=== PATIENT | male | born 1985 | race Caucasian/White ===

== ENCOUNTER 2016-08-31 02:44 | Inpatient (IN) | payer SELFPAY ==
[2016-08-31] MEDS ORDERED: Sodium Chloride 0.9% 2.5 ML Syringe FLUSH PRN ×2 (03:46→05:40)
[2016-08-31] MEDS ORDERED: Sodium Chloride 0.9% 10 ML Syringe FLUSH PRN ×2 (03:46→05:40)
--- NOTE | 2016-08-31 03:51 | EDM.PDOC ---
ED HPI GENERAL MEDICAL PROBLEM - General Chief Complaint: Skin Complaint Stated Complaint: INSECT BITE ON RIGHT ARM- SWOLLEN Time Seen by Provider: 08/31/16 03:44 - History of Present Illness INITIAL COMMENTS - FREE TEXT/NARRATIVE: HISTORY AND PHYSICAL: History of present illness: Patient 31-year-old white male presents with a concern of pain swelling and redness to his right forearm patient does have history of MRSA and was hospitalized for this prior this is been over the last 2-3 days with expanding erythema pain and swelling he denies fever chills nausea vomiting or other complaints Review of systems: As per history of present illness and below otherwise all systems reviewed and negative. Past medical history: As per history of present illness and as reviewed below otherwise noncontributory. Surgical history: As per history of present illness and as reviewed below otherwise noncontributory. Social history: No reported history of drug or alcohol abuse. Family history: As per history of present illness and as reviewed below otherwise noncontributory. Physical exam: HEENT: Atraumatic, normocephalic, pupils reactive, negative for conjunctival pallor or scleral icterus, mucous membranes moist, throat clear, neck supple, nontender, trachea midline. Lungs: Clear to auscultation, breath sounds equal bilaterally, chest nontender. Heart: S1S2, regular, negative for clicks, rubs, or JVD. Abdomen: Soft, nondistended, nontender. Negative for masses or hepatosplenomegaly. Negative for costovertebral tenderness. Pelvis: Stable nontender. Genitourinary: Deferred. Rectal: Deferred. Extremities: Patient has approximately 6 cm circumferential area to his right forearm with significant swelling and erythema there is a excoriated area centrally noted. CMS neurovascular exams unremarkable Neuro: Awake, alert, oriented. Cranial nerves II through XII unremarkable. Cerebellum unremarkable. Motor and sensory unremarkable throughout. Exam nonfocal. Diagnostics: CBC CMP lactic acid blood culture 2 CT right forearm Therapeutics: Normal saline at 1 25 mL hour vancomycin 1 g IV Impression: #1 cellulitis right upper extremity Definitive disposition and diagnosis as appropriate pending reevaluation and review of above. 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 Musculoskeletal History: Reports: None Neurological History: Reports: None Psychiatric History: Reports: None Endocrine/Metabolic History: Reports: None Hematologic History: Reports: None Immunologic History: Reports: None Oncologic (Cancer) History: Reports: None Dermatologic History: Reports: None - Infectious Disease History Infectious Disease History: Reports: None - Past Surgical History Head Surgeries/Procedures: Reports: None Musculoskeletal Surgical History: Reports: Other (See Below) Other Musculoskeletal Surgeries/Procedures:: ankle surgery Social & Family History - Family History Family Medical History: Noncontributory - Tobacco Use Smoking Status *Q: Never Smoker - Caffeine Use Caffeine Use: Reports: Soda - Recreational Drug Use Recreational Drug Use: No ED ROS GENERAL - Review of Systems Review Of Systems: ROS reveals no pertinent complaints other than HPI. ED EXAM, SKIN/RASH Exam: See Below (See dictation) Course - Vital Signs Last Recorded V/S: Last Vital Signs Temp 37.0 C 08/31/16 02:56 Pulse 119 H 08/31/16 02:56 Resp 18 08/31/16 02:56 BP 157/102 H 08/31/16 02:56 Pulse Ox 97 08/31/16 02:56 - Orders/Labs/Meds Orders: Active Orders 24 hr Category Date Time Status Forearm w Cont Rt [CT] Stat Exams 08/31/16 03:49 Ordered COMPREHENSIVE METABOLIC PN,CMP [CHEM] Stat Lab 08/31/16 03:56 Received CULTURE BLOOD [BC] Stat Lab 08/31/16 03:56 Received CULTURE BLOOD [BC] Stat Lab 08/31/16 04:04 Received Sodium Chloride 0.9% [Saline Flush] Med 08/31/16 03:46 Active 10 ml FLUSH ASDIRECTED PRN Sodium Chloride 0.9% [Saline Flush] Med 08/31/16 03:46 Active 2.5 ml FLUSH ASDIRECTED PRN Vancomycin [Vancocin] 1 gm Med 08/31/16 03:47 Active Sodium Chloride 0.9% [Normal Saline] 250 ml IV ONETIME Blood Culture x2 Reflex Set [OM.PC] Stat Oth 08/31/16 03:46 Ordered Saline Lock Insert [OM.PC] Stat Ot 08/31/16 03:45 Ordered Medication Orders Vancomycin HCl 1 gm/ Sodium (Chloride) 250 mls @ 250 mls/hr IV ONETIME ONE Stop: 08/31/16 04:46 Last Admin: 08/31/16 04:02 Dose: 250 mls/hr Sodium Chloride (Saline Flush) 10 ml FLUSH ASDIRECTED PRN PRN Reason: Keep Vein Open Sodium Chloride (Saline Flush) 2.5 ml FLUSH ASDIRECTED PRN PRN Reason: Keep Vein Open Labs: Laboratory Tests 08/31/16 08/31/16 Range/Units 03:56 03:56 WBC 8.50 (4.0-11.0) K/uL RBC 5.08 (4.30-5.90) M/uL Hgb 14.6 (12.0-16.0) g/dL Hct 43.0 (36.0-46.0) % MCV 84.6 (80.0-98.0) fL MCH 28.7 (27.0-32.0) pg MCHC 34.0 (31.0-37.0) g/dL RDW Std Deviation 40.0 (28.0-62.0) fl RDW Coeff of Wilmer 13 (11.0-15.0) % Plt Count 205 (150-400) K/uL MPV 9.40 (7.40-12.00) fL Neut % (Auto) 60.1 (48.0-80.0) % Lymph % (Auto) 30.6 (16.0-40.0) % [place] % (Auto) 6.4 (0.0-15.0) % Eos % (Auto) 2.4 (0.0-7.0) % Baso % (Auto) 0.5 (0.0-1.5) % Neut # (Auto) 5.1 (1.4-5.7) K/uL Lymph # (Auto) 2.6 H (0.6-2.4) K/uL [place] # (Auto) 0.5 (0.0-0.8) K/uL Eos # (Auto) 0.2 (0.0-0.7) K/uL Baso # (Auto) 0.0 (0.0-0.1) K/uL Nucleated RBC % 0.0 /100WBC Nucleated RBCs # 0 K/uL Lactate 2.5 H (0.20-2.00) mmol/L Meds: Medications Generic Name Dose Route Start Last Admin Trade Name Freq PRN Reason Stop Dose Admin Vancomycin HCl 1 gm/ Sodium 250 mls @ 250 mls/hr 08/31/16 03:47 08/31/16 04: 02 Chloride IV 08/31/16 04:46 250 mls/hr ONETIME ONE Administration Sodium Chloride 10 ml 08/31/16 03:46 Saline Flush FLUSH ASDIRECTED PRN Keep Vein Open Sodium Chloride 2.5 ml 08/31/16 03:46 Saline Flush FLUSH ASDIRECTED PRN Keep Vein Open Departure - Departure Time of Disposition: 04:24 Disposition: Admitted As Inpatient 64 Condition: Good Clinical Impression: Cellulitis - Discharge Information Forms: ED Department Discharge - My Orders Last 24 Hours: My Active Orders 08/31/16 03:45 Saline Lock Insert [OM.PC] Stat 08/31/16 03:46 Sodium Chloride 0.9% [Saline Flush] 10 ml FLUSH ASDIRECTED PRN Sodium Chloride 0.9% [Saline Flush] 2.5 ml FLUSH ASDIRECTED PRN Blood Culture x2 Reflex Set [OM.PC] Stat 08/31/16 03:47 Vancomycin [Vancocin] 1 gm Sodium Chloride 0.9% [Normal Saline] 250 ml IV ONETIME 08/31/16 03:49 Forearm w Cont Rt [CT] Stat 08/31/16 03:56 COMPREHENSIVE METABOLIC PN,CMP [CHEM] Stat CULTURE BLOOD [BC] Stat 08/31/16 04:04 CULTURE BLOOD [BC] Stat - Assessment/Plan Last 24 Hours: My Active Orders 08/31/16 03:45 Saline Lock Insert [OM.PC] Stat 08/31/16 03:46 Sodium Chloride 0.9% [Saline Flush] 10 ml FLUSH ASDIRECTED PRN Sodium Chloride 0.9% [Saline Flush] 2.5 ml FLUSH ASDIRECTED PRN Blood Culture x2 Reflex Set [OM.PC] Stat 08/31/16 03:47 Vancomycin [Vancocin] 1 gm Sodium Chloride 0.9% [Normal Saline] 250 ml IV ONETIME 08/31/16 03:49 Forearm w Cont Rt [CT] Stat 08/31/16 03:56 COMPREHENSIVE METABOLIC PN,CMP [CHEM] Stat CULTURE BLOOD [BC] Stat 08/31/16 04:04 CULTURE BLOOD [BC] Stat
[2016-08-31 04:42] LABS: CHLORIDE,CL 106 mmol/L (98-110); SODIUM,NA 139 mmol/L (136-146)
[2016-08-31] MEDS ORDERED: Iopamidol 755 Mg/ML 100 ML Bottle IVPUSH STA (05:21)
[2016-08-31] MEDS: HYDROmorphone 2 MG/ML Syringe IVPUSH PRN ×2 (06:38→20:52)
[2016-08-31] MEDS: Lisinopril 10 MG Tab PO SCH (08:38)
--- NOTE | 2016-08-31 09:02 | PCM.HP ---
H&P History of Present Illness - General Date of Service: 08/31/16 Admit Problem/Dx: Admission Diagnosis/Problem Admission Diagnosis/Problem Cellulitis - History of Present Illness Initial Comments - Free Text/Narative: 31 yo male admitted right forearm cellulitis and abscess. 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 He was c/o pain and throbbing. He does not smoke, drink etoh or usee illciit drugs. He is otherwise healthy without any medical problems. He has a strong family history of DM. 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 Musculoskeletal History: Reports: Gout Neurological History: Reports: None Psychiatric History: Reports: None Endocrine/Metabolic History: Reports: None Hematologic History: Reports: None Immunologic History: Reports: None Oncologic (Cancer) History: Reports: None Dermatologic History: Reports: None - Infectious Disease History Infectious Disease History: Reports: Other (See Below) Other Infectious Disease History: Staphyloccus - Past Surgical History Head Surgeries/Procedures: Reports: None Musculoskeletal Surgical History: Reports: Other (See Below) Other Musculoskeletal Surgeries/Procedures:: ankle surgery Social & Family History - Family History Family Medical History: Noncontributory HEENT: Reports: None Cardiac: Reports: Blood Clots/VTE/DVT, High Cholesterol, Hypertension, MA, Stent Respiratory: Reports: None GI: Reports: None : Reports: None OBGYN: Reports: Musculoskeletal: Reports: None Neurological: Reports: TIA Psychiatric: Reports: None Endocrine/Metabolic: Reports: Diabetes, Type I Hematologic: Reports: None Immunologic: Reports: None Dermatologic: Reports: None Oncologic: Reports: None - Tobacco Use Smoking Status *Q: Never Smoker - Caffeine Use Caffeine Use: Reports: Soda - Recreational Drug Use Recreational Drug Use: No H&P Review of Systems - Review of Systems: Review Of Systems: See Below General: Reports: No Symptoms HEENT: Reports: No Symptoms Pulmonary: Reports: No Symptoms Cardiovascular: Reports: No Symptoms Gastrointestinal: Reports: No Symptoms Musculoskeletal: Reports: No Symptoms Skin: Reports: Other Psychiatric: Reports: No Symptoms Neurological: Reports: No Symptoms Exam - Exam Exam: See Below - Vital Signs Vital Signs: Last Vital Signs Temp 96.5 F 08/31/16 08:00 Pulse 71 08/31/16 08:00 Resp 20 08/31/16 08:00 BP 128/78 08/31/16 08:38 Pulse Ox 95 08/31/16 08:00 Weight: 147.5 kg - Exam General: Alert, Oriented Neck: Supple, Trachea Midline Lungs: Clear to Auscultation, Normal Respiratory Effort Cardiovascular: Regular Rate, Regular Rhythm Abdomen: Normal Bowel Sounds, Soft Back Exam: Normal Inspection, Full Range of Motion Skin: Wound, Other (right forearm cellulitis: abscess and erythema) Neurological: Cranial Nerves Intact - Patient Data Result Diagrams: 08/31/16 03:56 08/31/16 03:56 *Q Meaningful Use (ADM) - VTE *Q VTE Criteria *Q: - Stroke *Q Stroke Criteria *Q: - AMI *Q AMI Criteria *Q: Problem List Initiated/Reviewed/Updated: Yes Orders Last 24hrs: Active Orders 24 hr Category Date Time Status Regular Diet [DIET] Diet 08/31/16 Breakfast Active GLYCOSYLATED HEMOGLOBIN,HGBA1C [CHEM] Routine Lab 08/31/16 03:56 Received LACTIC ACID,WHOLE BLOOD [BG] Q6H Lab 08/31/16 09:56 Ordered LACTIC ACID,WHOLE BLOOD [BG] Q6H Lab 08/31/16 15:56 Ordered VANCOMYCIN TROUGH [CHEM] Timed Lab 09/01/16 11:30 Ordered HYDROmorphone [Dilaudid] Med 08/31/16 05:41 Active 2 mg IVPUSH Q2H PRN Lisinopril [Prinivil] Med 08/31/16 09:00 Active 10 mg PO DAILY Sodium Chloride 0.9% [Saline Flush] Med 08/31/16 05:40 Active 10 ml FLUSH ASDIRECTED PRN Sodium Chloride 0.9% [Saline Flush] Med 08/31/16 05:40 Active 2.5 ml FLUSH ASDIRECTED PRN Vancomycin 1.5 gm Med 08/31/16 12:00 Active Sodium Chloride 0.9% [Normal Saline] 500 ml IV Q8H Vancomycin Pharmacy to Dose [Pharmacy to Dose - Med 08/31/16 05:45 Active Vancomycin] 1 dose .XX ASDIRECTED Saline Lock Insert [OM.PC] Routine Oth 08/31/16 05:40 Ordered Medication Orders Hydromorphone HCl (Dilaudid) 2 mg IVPUSH Q2H PRN PRN Reason: Pain Last Admin: 08/31/16 06:38 Dose: 2 mg Vancomycin HCl 1.5 gm/ Sodium (Chloride) 500 mls @ 333.333 mls/hr IV Q8H [facility] Lisinopril (Prinivil) 10 mg PO DAILY [facility] Last Admin: 08/31/16 08:38 Dose: 10 mg Sodium Chloride (Saline Flush) 10 ml FLUSH ASDIRECTED PRN PRN Reason: Keep Vein Open Sodium Chloride (Saline Flush) 2.5 ml FLUSH ASDIRECTED PRN PRN Reason: Keep Vein Open Sodium Chloride (Saline Flush) 10 ml FLUSH ASDIRECTED PRN PRN Reason: Keep Vein Open Sodium Chloride (Saline Flush) 2.5 ml FLUSH ASDIRECTED PRN PRN Reason: Keep Vein Open Vancomycin HCl (Pharmacy To Dose - Vancomycin) 1 dose .XX ASDIRECTED [facility] Assessment/Plan Comment:: 31 yo male admitted for right forearm cellulitis and abscess add zosyn to vanco consider ID Hba1c is normal
--- NOTE | 2016-08-31 10:59 | CT ---
EXAM DATE: 08/31/16 PATIENT'S AGE: 31 Patient: LOGAN ARMSTRONG Facility: [place], [place] Site . Site : 1985 Study: CT Extremity Right FOREARM W CONT [id number]/[id number] 5:27:14 AM Ordering Physician: Mercedes Maldonado Final Report: INDICATION: Right forearm swelling with skin redness. Pressure and pain on top of the right arm for 2 days. Rule out cellulitis, abscess. TECHNIQUE: CT without i.v. contrast. Coronal and sagittal reformats were obtained. IV Contrast: Isovue 370 100 mL COMPARISON: None FINDINGS: Images extend from the distal humerus, just proximal to right elbow, to the proximal right hand. Rounded hypodensity medial to base of 1st metacarpal on series 2 of 5 image 16, visualized on axial series 201, image 23, measuring 1.2 centimeters. Findings are indeterminate. No peripheral enhancement or adjacent inflammatory changes. Mild subcutaneous edema at the dorsal margin of right wrist and distal forearm. No subcutaneous fluid collection. No inflammatory changes evident in the fascia planes of the right forearm, extending to the right elbow. IMPRESSION: 1. Likely mild cellulitis of the right wrist and distal forearm. No inflammatory changes in the deep fascia planes or muscles of the right forearm. Indeterminate intramuscular hypodensity at the medial margin of 1st metacarpal base without significant adjacent inflammatory changes, identified on series 201 , image 23 measuring 1.2 centimeters. Consider correlation with MRI with IV contrast. CT imaging features are not typical for abscess with lack of adjacent inflammatory changes and peripheral enhancement. Dictated by Kyree Mcgill MD @ 08/31/2016 5:39:22 AM Dictated by: Kyree Mcgill MD @ 08/31/2016 05:39:27 (Electronic Signature) Report Signed by Proxy. SENIA
[2016-08-31] MEDS: Piperacillin/Tazobactam 3.375 GM in Sodium Chloride 0.9% 50 ML IV SCH ×3 (11:06→22:33)
[2016-08-31] MEDS: Vancomycin 1.5 GM in Sodium Chloride 0.9% 500 ML IV SCH ×2 (11:49→21:00)
[2016-09-01] MEDS: Piperacillin/Tazobactam 3.375 GM in Sodium Chloride 0.9% 50 ML IV SCH ×4 (04:48→22:50)
[2016-09-01] MEDS: Vancomycin 1.5 GM in Sodium Chloride 0.9% 500 ML IV SCH ×3 (05:22→20:32)
[2016-09-01 06:32] LABS: CHLORIDE,CL 108 mmol/L (98-110); SODIUM,NA 140 mmol/L (136-146)
[2016-09-01] MEDS: Lisinopril 10 MG Tab PO SCH ×2 (08:27→08:34)
[2016-09-01] MEDS ORDERED: Lidocaine 2% 5 ML SDV INJECT ONE (09:00)
--- NOTE | 2016-09-01 10:11 | PCM.PN ---
- General Info Date of Service: 09/01/16 Functional Status: Reports: pain controlled, tolerating diet, ambulating, urinating - Review of Systems General: Reports: No Symptoms HEENT: Reports: no symptoms Pulmonary: Reports: no symptoms Cardiovascular: Reports: No Symptoms Gastrointestinal: Reports: No symptoms Genitourinary: Reports: no symptoms Musculoskeletal: Reports: no symptoms Skin: Reports: other (right forearm abscess) Neurological: Reports: No Symptoms Psychiatric: Reports: no symptoms - Patient Data Vitals - most recent: Last Vital Signs Temp 98.7 F 09/01/16 08:00 Pulse 52 L 09/01/16 08:00 Resp 18 09/01/16 08:00 BP 125/65 09/01/16 08:34 Pulse Ox 94 L 09/01/16 08:00 Weight - most recent: 147.5 kg I&O - last 24 hours: Intake & Output 08/31/16 09/01/16 09/01/16 22:59 06:59 14:59 Intake Total 1850 550 500 Output Total 600 650 Balance 1250 -100 500 Lab Results last 24 hrs: Laboratory Results - last 24 hr 08/31/16 09/01/16 09/01/16 Range/Units 10:45 05:44 05:44 WBC 7.07 (4.0-11.0) K/uL RBC 4.76 (4.50-5.90) M/uL Hgb 13.5 (13.0-17.0) g/dL Hct 40.9 (38.0-50.0) % MCV 85.9 (80.0-98.0) fL MCH 28.4 (27.0-32.0) pg MCHC 33.0 (31.0-37.0) g/dL RDW Std Deviation 41.8 (28.0-62.0) fl RDW Coeff of Wilmer 13 (11.0-15.0) % Plt Count 181 (150-400) K/uL MPV 9.50 (7.40-12.00) fL Neut % (Auto) 52.3 (48.0-80.0) % Lymph % (Auto) 34.8 (16.0-40.0) % [place] % (Auto) 8.5 (0.0-15.0) % Eos % (Auto) 4.0 (0.0-7.0) % Baso % (Auto) 0.4 (0.0-1.5) % Neut # (Auto) 3.7 (1.4-5.7) K/uL Lymph # (Auto) 2.5 H (0.6-2.4) K/uL [place] # (Auto) 0.6 (0.0-0.8) K/uL Eos # (Auto) 0.3 (0.0-0.7) K/uL Baso # (Auto) 0.0 (0.0-0.1) K/uL Nucleated RBC % 0.0 /100WBC Nucleated RBCs # 0 K/uL Lactate 1.6 (0.20-2.00) mmol/L Sodium 140 (136-146) mmol/L Potassium 4.1 (3.5-5.1) mmol/L Chloride 108 (98-110) mmol/L Carbon Dioxide 25 (21-31) mmol/L BUN 11 (6.0-23.0) mg/dL Creatinine 1.0 (0.6-1.5) mg/dL Est Cr Clr Drug Dosing 118.74 mL/min Estimated GFR (MDRD) > 60.0 ml/min Glucose 95 (60-110) mg/dL Calcium 8.5 L (8.8-10.8) mg/dL Med Orders - Current: Current Medications Hydromorphone HCl (Dilaudid) 2 mg IVPUSH Q2H PRN PRN Reason: Pain Last Admin: 08/31/16 20:52 Dose: 2 mg Vancomycin HCl 1.5 gm/ Sodium (Chloride) 500 mls @ 333.333 mls/hr IV Q8H [facility] Last Admin: 09/01/16 05:22 Dose: 333.333 mls/hr Piperacillin Sod/Tazobactam (Sod 3.375 gm/ Sodium Chloride) 50 mls @ 100 mls/ hr IV Q6H [facility] Last Admin: 09/01/16 04:48 Dose: 100 mls/hr Lisinopril (Prinivil) 10 mg PO DAILY [facility] Last Admin: 09/01/16 08:34 Dose: 10 mg Sodium Chloride (Saline Flush) 10 ml FLUSH ASDIRECTED PRN PRN Reason: Keep Vein Open Sodium Chloride (Saline Flush) 2.5 ml FLUSH ASDIRECTED PRN PRN Reason: Keep Vein Open Sodium Chloride (Saline Flush) 10 ml FLUSH ASDIRECTED PRN PRN Reason: Keep Vein Open Sodium Chloride (Saline Flush) 2.5 ml FLUSH ASDIRECTED PRN PRN Reason: Keep Vein Open Vancomycin HCl (Pharmacy To Dose - Vancomycin) 1 dose .XX ASDIRECTED [facility] Discontinued Medications Vancomycin HCl 1 gm/ Sodium (Chloride) 250 mls @ 250 mls/hr IV ONETIME ONE Stop: 08/31/16 04:46 Last Admin: 08/31/16 04:02 Dose: 250 mls/hr Vancomycin HCl 500 mg/ Sodium (Chloride) 100 mls @ 100 mls/hr IV NOW ONE Stop: 08/31/16 06:59 Last Admin: 08/31/16 06:30 Dose: 100 mls/hr Iopamidol (Isovue-370 (76%)) 100 ml IVPUSH ONETIME STA Stop: 08/31/16 05:22 Last Admin: 08/31/16 05:22 Dose: 100 ml Lidocaine (Xylocaine-Mpf 2%) 5 ml INJECT ONETIME ONE Stop: 09/01/16 09:01 Last Admin: 09/01/16 09:45 Dose: 5 ml - Exam General: alert, oriented HEENT: Pupils equal, EOMI Neck: supple, trachea midline Lungs: Decreased breath sounds Cardiovascular: Regular Rate, Regular Rhythm Abdomen: bowel sounds present, soft, no tenderness Back Exam: Normal Inspection, Full Range of Motion Extremities: no edema Skin: other (right forearm: there is hard abscess slightly fluctuant raised 4X 5 cm) Neurological: no new focal deficit Psy/Mental Status: alert, normal affect, normal mood - Problem List Review Problem List Initiated/Reviewed/Updated: Yes - My Orders Last 24 Hours: My Active Orders 08/31/16 10:07 Code Status [Resuscitation Status] Routine 08/31/16 10:30 Piperacillin/Tazobactam [Piperacil-Tazobact] 3.375 gm Sodium Chloride 0.9% [ Normal Saline] 50 ml IV Q6H - Plan Plan:: 31 yo male admitted for right forearm cellulitis and abscess Right forearm I/D preformed: there is serosanguinous fluid. No pus drained. Patient felt somewhat relief after ID. continue abx anticipate discharge tomorrow.
[2016-09-01] MEDS: HYDROmorphone 2 MG/ML Syringe IVPUSH PRN ×4 (11:24→23:39)
[2016-09-02] MEDS: Piperacillin/Tazobactam 3.375 GM in Sodium Chloride 0.9% 50 ML IV SCH ×4 (04:00→22:17)
[2016-09-02] MEDS: Vancomycin 1.5 GM in Sodium Chloride 0.9% 500 ML IV SCH ×3 (04:51→20:30)
[2016-09-02 06:16] LABS: CHLORIDE,CL 106 mmol/L (98-110); SODIUM,NA 138 mmol/L (136-146)
[2016-09-02] MEDS: HYDROmorphone 2 MG/ML Syringe IVPUSH PRN ×4 (07:02→22:58)
[2016-09-02] MEDS: Lisinopril 10 MG Tab PO SCH (09:23)
--- NOTE | 2016-09-02 12:08 | PCM.PN ---
- General Info Date of Service: 09/02/16 Subjective Update: he is feeling better a little. no chills . he ate well last pm. 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 - Patient Data Vitals - most recent: Last Vital Signs Temp 97.8 F 09/02/16 08:00 Pulse 75 09/02/16 08:00 Resp 18 09/02/16 08:00 BP 127/65 09/02/16 09:23 Pulse Ox 93 L 09/02/16 08:00 Weight - most recent: 147.5 kg I&O - last 24 hours: Intake & Output 09/01/16 09/02/16 09/02/16 22:59 06:59 14:59 Intake Total 2240 1550 Output Total 800 Balance 1440 1550 Lab Results last 24 hrs: Laboratory Results - last 24 hr 09/01/16 09/02/16 09/02/16 Range/Units 11:39 05:32 05:32 WBC 8.66 (4.0-11.0) K/uL RBC 4.78 (4.50-5.90) M/uL Hgb 13.6 (13.0-17.0) g/dL Hct 40.5 (38.0-50.0) % MCV 84.7 (80.0-98.0) fL MCH 28.5 (27.0-32.0) pg MCHC 33.6 (31.0-37.0) g/dL RDW Std Deviation 40.5 (28.0-62.0) fl RDW Coeff of Wilmer 13 (11.0-15.0) % Plt Count 198 (150-400) K/uL MPV 9.40 (7.40-12.00) fL Neut % (Auto) 61.3 (48.0-80.0) % Lymph % (Auto) 26.7 (16.0-40.0) % [place] % (Auto) 8.5 (0.0-15.0) % Eos % (Auto) 2.8 (0.0-7.0) % Baso % (Auto) 0.7 (0.0-1.5) % Neut # (Auto) 5.3 (1.4-5.7) K/uL Lymph # (Auto) 2.3 (0.6-2.4) K/uL [place] # (Auto) 0.7 (0.0-0.8) K/uL Eos # (Auto) 0.2 (0.0-0.7) K/uL Baso # (Auto) 0.1 (0.0-0.1) K/uL Nucleated RBC % 0.0 /100WBC Nucleated RBCs # 0 K/uL Sodium 138 (136-146) mmol/L Potassium 4.3 (3.5-5.1) mmol/L Chloride 106 (98-110) mmol/L Carbon Dioxide 25 (21-31) mmol/L BUN 11 (6.0-23.0) mg/dL Creatinine 1.1 (0.6-1.5) mg/dL Est Cr Clr Drug Dosing 107.95 mL/min Estimated GFR (MDRD) > 60.0 ml/min Glucose 89 (60-110) mg/dL Calcium 8.9 (8.8-10.8) mg/dL Vancomycin Trough 17.4 H (5-15) ug/mL Med Orders - Current: Current Medications Hydromorphone HCl (Dilaudid) 2 mg IVPUSH Q2H PRN PRN Reason: Pain Last Admin: 09/02/16 07:02 Dose: 2 mg Vancomycin HCl 1.5 gm/ Sodium (Chloride) 500 mls @ 333.333 mls/hr IV Q8H [facility] Last Admin: 09/02/16 04:51 Dose: 333.333 mls/hr Piperacillin Sod/Tazobactam (Sod 3.375 gm/ Sodium Chloride) 50 mls @ 100 mls/ hr IV Q6H [facility] Last Admin: 09/02/16 09:53 Dose: 100 mls/hr Lisinopril (Prinivil) 10 mg PO DAILY [facility] Last Admin: 09/02/16 09:23 Dose: 10 mg Sodium Chloride (Saline Flush) 10 ml FLUSH ASDIRECTED PRN PRN Reason: Keep Vein Open Sodium Chloride (Saline Flush) 2.5 ml FLUSH ASDIRECTED PRN PRN Reason: Keep Vein Open Sodium Chloride (Saline Flush) 10 ml FLUSH ASDIRECTED PRN PRN Reason: Keep Vein Open Sodium Chloride (Saline Flush) 2.5 ml FLUSH ASDIRECTED PRN PRN Reason: Keep Vein Open Vancomycin HCl (Pharmacy To Dose - Vancomycin) 1 dose .XX ASDIRECTED [facility] Discontinued Medications Vancomycin HCl 1 gm/ Sodium (Chloride) 250 mls @ 250 mls/hr IV ONETIME ONE Stop: 08/31/16 04:46 Last Admin: 08/31/16 04:02 Dose: 250 mls/hr Vancomycin HCl 500 mg/ Sodium (Chloride) 100 mls @ 100 mls/hr IV NOW ONE Stop: 08/31/16 06:59 Last Admin: 08/31/16 06:30 Dose: 100 mls/hr Iopamidol (Isovue-370 (76%)) 100 ml IVPUSH ONETIME STA Stop: 08/31/16 05:22 Last Admin: 08/31/16 05:22 Dose: 100 ml Lidocaine (Xylocaine-Mpf 2%) 5 ml INJECT ONETIME ONE Stop: 09/01/16 09:01 Last Admin: 09/01/16 09:45 Dose: 5 ml - Exam General: alert, oriented, cooperative Neck: trachea midline Lungs: Normal respiratory effort Psy/Mental Status: alert Physical Findings Comments:: right radial wrist with erythema, swelling, tenderness with slight induration. no fluctuance - Problem List & Annotations (1) Cellulitis SNOMED Code(s): 340712336 Code(s): L03.90 - CELLULITIS, UNSPECIFIED Status: Acute Current Visit: Yes - Problem List Review Problem List Initiated/Reviewed/Updated: Yes - My Orders Last 24 Hours: My Active Orders 09/03/16 11:00 VANCOMYCIN TROUGH [CHEM] Routine - Plan Plan:: 31 yo male admitted for right forearm cellulitis and abscess Right forearm I/D preformed: there is serosanguinous fluid. No pus drained. Patient felt somewhat relief after ID. continue abx anticipate discharge tomorrow. 09/02/2016 gradual improvement anticipate discharge tomorrow on bactrim and augmentin Kyree Valle MD
--- NOTE | 2016-09-02 14:49 | PCM.SN ---
- Free Text/Narrative Note: I spoke with nursing staff and was advised by them and by patient that the area of swelling and redness over the right wrist seems to be increasing. MRI with contrast tomorrow. will seek surgery consultation. Kyree Valle MD
[2016-09-03] MEDS: HYDROmorphone 2 MG/ML Syringe IVPUSH PRN ×4 (01:47→19:21)
[2016-09-03] MEDS: Vancomycin 1.5 GM in Sodium Chloride 0.9% 500 ML IV SCH ×3 (04:38→21:48)
[2016-09-03] MEDS: Piperacillin/Tazobactam 3.375 GM in Sodium Chloride 0.9% 50 ML IV SCH ×4 (06:26→23:27)
[2016-09-03] MEDS: Lisinopril 10 MG Tab PO SCH (08:09)
--- NOTE | 2016-09-03 09:16 | PCM.PN ---
- General Info Date of Service: 09/03/16 Functional Status: Reports: pain controlled Pain Score: 5 - Review of Systems General: Reports: No Symptoms HEENT: Reports: no symptoms Pulmonary: Reports: no symptoms Cardiovascular: Reports: No Symptoms Gastrointestinal: Reports: No symptoms Genitourinary: Reports: no symptoms Musculoskeletal: Reports: no symptoms Skin: Reports: other (feels cellulitis is worsening') Neurological: Reports: No Symptoms Psychiatric: Reports: no symptoms - Patient Data Vitals - most recent: Last Vital Signs Temp 97.3 F 09/03/16 08:00 Pulse 63 09/03/16 08:00 Resp 16 09/03/16 08:00 BP 116/63 09/03/16 08:09 Pulse Ox 93 L 09/03/16 08:00 Weight - most recent: 147.5 kg I&O - last 24 hours: Intake & Output 09/02/16 09/03/16 09/03/16 22:59 06:59 14:59 Intake Total 1800 1425 Output Total 1600 Balance 200 1425 Lab Results last 24 hrs: Laboratory Results - last 24 hr 09/03/16 Range/Units 05:50 WBC 6.69 (4.0-11.0) K/uL RBC 4.73 (4.50-5.90) M/uL Hgb 13.4 (13.0-17.0) g/dL Hct 40.4 (38.0-50.0) % MCV 85.4 (80.0-98.0) fL MCH 28.3 (27.0-32.0) pg MCHC 33.2 (31.0-37.0) g/dL RDW Std Deviation 40.9 (28.0-62.0) fl RDW Coeff of Wilmer 13 (11.0-15.0) % Plt Count 188 (150-400) K/uL MPV 9.40 (7.40-12.00) fL Neut % (Auto) 54.1 (48.0-80.0) % Lymph % (Auto) 33.6 (16.0-40.0) % [place] % (Auto) 7.9 (0.0-15.0) % Eos % (Auto) 3.7 (0.0-7.0) % Baso % (Auto) 0.7 (0.0-1.5) % Neut # (Auto) 3.6 (1.4-5.7) K/uL Lymph # (Auto) 2.3 (0.6-2.4) K/uL [place] # (Auto) 0.5 (0.0-0.8) K/uL Eos # (Auto) 0.3 (0.0-0.7) K/uL Baso # (Auto) 0.1 (0.0-0.1) K/uL Nucleated RBC % 0.0 /100WBC Nucleated RBCs # 0 K/uL Med Orders - Current: Current Medications Hydromorphone HCl (Dilaudid) 2 mg IVPUSH Q2H PRN PRN Reason: Pain Last Admin: 09/03/16 04:35 Dose: 2 mg Vancomycin HCl 1.5 gm/ Sodium (Chloride) 500 mls @ 333.333 mls/hr IV Q8H [facility] Last Admin: 09/03/16 04:38 Dose: 333.333 mls/hr Piperacillin Sod/Tazobactam (Sod 3.375 gm/ Sodium Chloride) 50 mls @ 100 mls/ hr IV Q6H [facility] Last Admin: 09/03/16 06:26 Dose: 100 mls/hr Lisinopril (Prinivil) 10 mg PO DAILY [facility] Last Admin: 09/03/16 08:09 Dose: 10 mg Sodium Chloride (Saline Flush) 10 ml FLUSH ASDIRECTED PRN PRN Reason: Keep Vein Open Sodium Chloride (Saline Flush) 2.5 ml FLUSH ASDIRECTED PRN PRN Reason: Keep Vein Open Sodium Chloride (Saline Flush) 10 ml FLUSH ASDIRECTED PRN PRN Reason: Keep Vein Open Sodium Chloride (Saline Flush) 2.5 ml FLUSH ASDIRECTED PRN PRN Reason: Keep Vein Open Vancomycin HCl (Pharmacy To Dose - Vancomycin) 1 dose .XX ASDIRECTED [facility] Discontinued Medications Vancomycin HCl 1 gm/ Sodium (Chloride) 250 mls @ 250 mls/hr IV ONETIME ONE Stop: 08/31/16 04:46 Last Admin: 08/31/16 04:02 Dose: 250 mls/hr Vancomycin HCl 500 mg/ Sodium (Chloride) 100 mls @ 100 mls/hr IV NOW ONE Stop: 08/31/16 06:59 Last Admin: 08/31/16 06:30 Dose: 100 mls/hr Iopamidol (Isovue-370 (76%)) 100 ml IVPUSH ONETIME STA Stop: 08/31/16 05:22 Last Admin: 08/31/16 05:22 Dose: 100 ml Lidocaine (Xylocaine-Mpf 2%) 5 ml INJECT ONETIME ONE Stop: 09/01/16 09:01 Last Admin: 09/01/16 09:45 Dose: 5 ml - Exam General: alert, oriented HEENT: Pupils equal, EOMI Neck: supple, trachea midline Lungs: Clear to auscultation, Normal respiratory effort Cardiovascular: Regular Rate, Regular Rhythm Abdomen: bowel sounds present, soft Extremities: other (right forearm cellulitis: improving. It is not beyond the marking. There is hard non fluctuant lesion measuing 3X4 cm that has decreased in size. ) - Problem List Review Problem List Initiated/Reviewed/Updated: Yes - Plan Plan:: 31 yo male admitted for right forearm cellulitis and abscess Right forearm I/D preformed: there is serosanguinous fluid. No pus drained. Patient felt somewhat relief after ID. NO complications noted. ID was performed in sterile manner. continue abx anticipate discharge tomorrow. 09/02/2016 gradual improvement anticipate discharge tomorrow on bactrim and augmentin Kyree Valle MD 09/03/16 improving MRI of the forearm today Spoke to Dr. ELLIOTT the general surgeon: no surgical intervention at this time. anticipate discharge today or tomorrow.
--- NOTE | 2016-09-03 09:38 | PCM.SN ---
- Free Text/Narrative Note: R FA cellulitis, 6 days ago, had been on IV abx X 4 days, improving; waiting MRI , may be better with plain film follow with US, if concerned with FB; apparantly , CT did not show FB; proceed w MRI is fine. [phone]
--- NOTE | 2016-09-03 13:47 | CONS ---
DATE OF CONSULTATION: DATE OF : 1985 PRIMARY CARE PHYSICIAN: None PCP Consult was called. The patient seen shortly after. CONCERNING QUESTION: Right foot forearm cellulitis. HISTORY OF PRESENT ILLNESS: The patient is a 31-year-old, morbidly obese, gentleman with a BMI of 42, admitted about five days ago for right arm cellulitis. He was complaining of pain and was started on antibiotic and also had a bedside I and D, which does not seem to drain any purulent material and is concern about progressing. Surgery was then consulted. PAST MEDICAL HISTORY: Significant for chewing tobacco, deny any smoking tobacco, and denies alcohol use or illicit drug use. Denies diabetes, RI, CVA, or hypertension. PAST SURGICAL HISTORY: He has a left ankle ORIF. ALLERGIES: Please refer nursing for details. MEDICATIONS: Please refer nursing for details. FAMILY HISTORY: Noncontributory. PHYSICAL EXAMINATION: GENERAL: A very pleasant, nice, young gentleman, resting in bed in no acute distress. HEENT: Normocephalic, atraumatic. Sclerae anicteric. LUNGS: Clear to auscultation. HEART: Regular rate and rhythm. ABDOMEN: Soft, nondistended. No pulsating, tender midline abdominal structure. A small umbilical hernia, apparently incarcerated, nontender. SKIN: Intact. EXTREMITIES: The patient is right-hand dominant. On the cephalic aspect on the medial of the right kin, there is an elevation with a marking above the cellulitis. The elevation does not feel fluctuance and there is no expressed material. The marking is about 14 x 10 cm but it is totally receding. We are unable to see any cellulitis and there is no swelling. IMPRESSION: Apparently has pretty good response to the treatment in with cellulitis, elevation persists but not fluctuation, nontender, not warm, possible scar tissue. The patient is scheduled for MRI and will formulate treatment plan after the MRI result. I agree with continuing IV antibiotic. We will follow the patient with you. ANGELA LOWE /[id number]
[2016-09-03] MEDS ORDERED: Gadobenate Dimeglumine 529 MG/ML 20 ML SDV IVPUSH STA (14:17)
--- NOTE | 2016-09-03 16:32 | MR ---
EXAMINATION: MRI of the wrist with and without contrast HISTORY: Possible abscess COMPARISON: CT forearm dated 08/31/2016 TECHNIQUE: Multiplanar and multisequence images obtained of the right wrist before and following the administration of 20 mL MultiHance. FINDINGS: Moderate motion artifact is noted on multiple sequences. There is edema and enhancement wi thin the dorsal soft tissues overlying the distal forearm. No organized fluid collection identified. No abnormal bone marrow signal. The previously demonstrated fluid collection adjacent to the base o f the second metacarpal is not within the [id number] on the provided images. The carpal tunnel ap pears normal. The extensor tendons appear grossly normal in signal characteristics. No abnormal fasc ial enhancement. IMPRESSION: 1. Probable dorsal forearm cellulitis without evidence of an abscess or a osteomyelitis. 2. The previously demonstrated fluid collection near the base of the second metacarpal is not includ ed within the [id number].
--- NOTE | 2016-09-03 18:55 | PCM.SN ---
- Free Text/Narrative Note: I reviewed the MRI result. I examined him and note that their is an area of increased swelling dorsal radial side of right forearm; induration vs possibly early fluctuance. Likely will try incision and drainage tomorrow. Kyree Valle MD
[2016-09-04] MEDS: HYDROmorphone 2 MG/ML Syringe IVPUSH PRN ×2 (00:37→02:44)
[2016-09-04] MEDS: Piperacillin/Tazobactam 3.375 GM in Sodium Chloride 0.9% 50 ML IV SCH ×2 (04:30→12:34)
[2016-09-04] MEDS: Vancomycin 1.5 GM in Sodium Chloride 0.9% 500 ML IV SCH ×2 (05:10→12:34)
[2016-09-04 05:22] LABS: CHLORIDE,CL 106 mmol/L (98-110); SODIUM,NA 140 mmol/L (136-146)
[2016-09-04] MEDS: Lisinopril 10 MG Tab PO SCH (08:53)
[2016-09-04] MEDS ORDERED: Lidocaine 2% 5 ML SDV INJECT ONE (10:37)
--- NOTE | 2016-09-04 11:37 | PCM.PRNOTE ---
- Free Text/Narrative Note: after verbal consent, incision and drainage performed using local infiltrative lidocaine anesthesia and standard technique. . No purulent material drained. An iodoform gauze packing was placed.
--- NOTE | 2016-09-04 11:42 | PCM.DCSUM1 ---
Discharge Summary - Hospital Course Brief History: he was admitted for cellulitis. - Discharge Data Discharge Date: 09/04/16 Discharge Disposition: Home, Self-Care 01 Condition: Good - Discharge Diagnosis/Problem(s) (1) Cellulitis SNOMED Code(s): 455417608 ICD Code: L03.90 - CELLULITIS, UNSPECIFIED Status: Acute Current Visit: Yes - Patient Summary/Data Consults: Consultations 09/02/16 14:51 Consult to Physician [CONS] Urgent Hospital Course: he was treated with vancomycin and zosyn. Imaging did not confirm any definite abscess formation. Incision and drainage was performed twice with no definite drainage of purulent material. He is much improved at discharge. 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 Impression: history of recurrent MRSA skin infections cellulitis Plan augmentin 875 one po bid x 7 days bactrim DS bid x 7 days bactroban to anterior nares tid x 30 days recheck if not continuing to improve. tetanus booster give (ADACEL) before discharge. follow up with a primary care provider within about a week. Kyree Valle MD - Discharge Plan Home Medications: Home Meds Lisinopril 10 mg PO DAILY 08/31/16 [History] Patient Handouts: Cellulitis, Adult, [id number], Incision and Drainage, Care After Referrals: Mick Chu DO [Physician] - 09/07/16 11:30 am - Patient Data Vitals - Most Recent: Last Vital Signs Temp 96.6 F 09/04/16 08:00 Pulse 52 L 09/04/16 08:00 Resp 20 09/04/16 08:00 BP 143/63 H 09/04/16 08:53 Pulse Ox 94 L 09/04/16 08:00 Weight - Most Recent: 147.5 kg I&O - Last 24 hours: Intake & Output 09/03/16 09/04/16 09/04/16 22:59 06:59 14:59 Intake Total 1270 1700 Output Total 400 600 Balance 870 1100 Lab Results - Last 24 hrs: Laboratory Results - last 24 hr 09/03/16 09/04/16 09/04/16 Range/Units 11:35 04:53 04:53 WBC 6.75 (4.0-11.0) K/uL RBC 4.98 (4.50-5.90) M/uL Hgb 14.0 (13.0-17.0) g/dL Hct 42.4 (38.0-50.0) % MCV 85.1 (80.0-98.0) fL MCH 28.1 (27.0-32.0) pg MCHC 33.0 (31.0-37.0) g/dL RDW Std Deviation 39.9 (28.0-62.0) fl RDW Coeff of Wilmer 13 (11.0-15.0) % Plt Count 194 (150-400) K/uL MPV 9.30 (7.40-12.00) fL Neut % (Auto) 53.2 (48.0-80.0) % Lymph % (Auto) 34.7 (16.0-40.0) % [place] % (Auto) 7.4 (0.0-15.0) % Eos % (Auto) 4.1 (0.0-7.0) % Baso % (Auto) 0.6 (0.0-1.5) % Neut # (Auto) 3.6 (1.4-5.7) K/uL Lymph # (Auto) 2.3 (0.6-2.4) K/uL [place] # (Auto) 0.5 (0.0-0.8) K/uL Eos # (Auto) 0.3 (0.0-0.7) K/uL Baso # (Auto) 0.0 (0.0-0.1) K/uL Nucleated RBC % 0.0 /100WBC Nucleated RBCs # 0 K/uL Sodium 140 (136-146) mmol/L Potassium 4.3 (3.5-5.1) mmol/L Chloride 106 (98-110) mmol/L Carbon Dioxide 27 (21-31) mmol/L BUN 11 (6.0-23.0) mg/dL Creatinine 1.1 (0.6-1.5) mg/dL Est Cr Clr Drug Dosing 107.95 mL/min Estimated GFR (MDRD) > 60.0 ml/min Glucose 98 (60-110) mg/dL Calcium 8.8 (8.8-10.8) mg/dL Vancomycin Trough 17.4 H (5-15) ug/mL Med Orders - Current: Current Medications Diphtheria/Tetanus/Acell Pertussis (Adacel) 0.5 ml IM .ONCE ONE Stop: 09/04/16 11:35 Hydromorphone HCl (Dilaudid) 2 mg IVPUSH Q2H PRN PRN Reason: Pain Last Admin: 09/04/16 02:44 Dose: 2 mg Vancomycin HCl 1.5 gm/ Sodium (Chloride) 500 mls @ 333.333 mls/hr IV Q8H [facility] Last Admin: 09/04/16 05:10 Dose: 333.333 mls/hr Piperacillin Sod/Tazobactam (Sod 3.375 gm/ Sodium Chloride) 50 mls @ 100 mls/ hr IV Q6H [facility] Last Admin: 09/04/16 04:30 Dose: 100 mls/hr Lisinopril (Prinivil) 10 mg PO DAILY [facility] Last Admin: 09/04/16 08:53 Dose: 10 mg Sodium Chloride (Saline Flush) 10 ml FLUSH ASDIRECTED PRN PRN Reason: Keep Vein Open Sodium Chloride (Saline Flush) 2.5 ml FLUSH ASDIRECTED PRN PRN Reason: Keep Vein Open Sodium Chloride (Saline Flush) 10 ml FLUSH ASDIRECTED PRN PRN Reason: Keep Vein Open Sodium Chloride (Saline Flush) 2.5 ml FLUSH ASDIRECTED PRN PRN Reason: Keep Vein Open Vancomycin HCl (Pharmacy To Dose - Vancomycin) 1 dose .XX ASDIRECTED [facility] Discontinued Medications Gadobenate Dimeglumine (Multihance) 20 ml IVPUSH ONETIME STA Stop: 09/03/16 14:18 Last Admin: 09/03/16 14:18 Dose: 20 ml Vancomycin HCl 1 gm/ Sodium (Chloride) 250 mls @ 250 mls/hr IV ONETIME ONE Stop: 08/31/16 04:46 Last Admin: 08/31/16 04:02 Dose: 250 mls/hr Vancomycin HCl 500 mg/ Sodium (Chloride) 100 mls @ 100 mls/hr IV NOW ONE Stop: 08/31/16 06:59 Last Admin: 08/31/16 06:30 Dose: 100 mls/hr Iopamidol (Isovue-370 (76%)) 100 ml IVPUSH ONETIME STA Stop: 08/31/16 05:22 Last Admin: 08/31/16 05:22 Dose: 100 ml Lidocaine (Xylocaine-Mpf 2%) 5 ml INJECT ONETIME ONE Stop: 09/01/16 09:01 Last Admin: 09/01/16 09:45 Dose: 5 ml Lidocaine (Xylocaine-Mpf 2%) 5 ml INJECT ONETIME ONE Stop: 09/04/16 10:38 Last Admin: 09/04/16 11:36 Dose: 5 ml *Q Meaningful Use (DIS) - VTE *Q VTE Criteria *Q: - Stroke *Q Stroke Criteria *Q: - AMI *Q AMI Criteria *Q:
[2016-09-04 11:49] VITALS: BP 134/80
[2016-09-04] MEDS ORDERED: Diphtheria,Pertussis(Acell),Tetanus Vaccine 0.5 ML Syringe IM ONE (12:00)
--- NOTE | 2016-09-04 12:19 | PCM.SURGPN ---
- General Info Date of Service: 09/04/16 - Review of Systems Genitourinary: Reports: no symptoms - Patient Data Vitals - most recent: Last Vital Signs Temp 97.3 F 09/04/16 11:48 Pulse 74 09/04/16 11:48 Resp 22 H 09/04/16 11:48 BP 134/80 09/04/16 11:48 Pulse Ox 98 09/04/16 11:48 Weight - most recent: 325 lb 2.909 oz I&O - last 24 hours: Intake & Output 09/03/16 09/04/16 09/04/16 22:59 06:59 14:59 Intake Total 1270 1700 Output Total 400 600 Balance 870 1100 Lab Results last 24 hrs: Laboratory Results - last 24 hr 09/03/16 09/04/16 09/04/16 Range/Units 11:35 04:53 04:53 WBC 6.75 (4.0-11.0) K/uL RBC 4.98 (4.50-5.90) M/uL Hgb 14.0 (13.0-17.0) g/dL Hct 42.4 (38.0-50.0) % MCV 85.1 (80.0-98.0) fL MCH 28.1 (27.0-32.0) pg MCHC 33.0 (31.0-37.0) g/dL RDW Std Deviation 39.9 (28.0-62.0) fl RDW Coeff of Wilmer 13 (11.0-15.0) % Plt Count 194 (150-400) K/uL MPV 9.30 (7.40-12.00) fL Neut % (Auto) 53.2 (48.0-80.0) % Lymph % (Auto) 34.7 (16.0-40.0) % [place] % (Auto) 7.4 (0.0-15.0) % Eos % (Auto) 4.1 (0.0-7.0) % Baso % (Auto) 0.6 (0.0-1.5) % Neut # (Auto) 3.6 (1.4-5.7) K/uL Lymph # (Auto) 2.3 (0.6-2.4) K/uL [place] # (Auto) 0.5 (0.0-0.8) K/uL Eos # (Auto) 0.3 (0.0-0.7) K/uL Baso # (Auto) 0.0 (0.0-0.1) K/uL Nucleated RBC % 0.0 /100WBC Nucleated RBCs # 0 K/uL Sodium 140 (136-146) mmol/L Potassium 4.3 (3.5-5.1) mmol/L Chloride 106 (98-110) mmol/L Carbon Dioxide 27 (21-31) mmol/L BUN 11 (6.0-23.0) mg/dL Creatinine 1.1 (0.6-1.5) mg/dL Est Cr Clr Drug Dosing 107.95 mL/min Estimated GFR (MDRD) > 60.0 ml/min Glucose 98 (60-110) mg/dL Calcium 8.8 (8.8-10.8) mg/dL Vancomycin Trough 17.4 H (5-15) ug/mL Med Orders - Current: Current Medications Hydromorphone HCl (Dilaudid) 2 mg IVPUSH Q2H PRN PRN Reason: Pain Last Admin: 09/04/16 02:44 Dose: 2 mg Vancomycin HCl 1.5 gm/ Sodium (Chloride) 500 mls @ 333.333 mls/hr IV Q8H [facility] Last Admin: 09/04/16 05:10 Dose: 333.333 mls/hr Piperacillin Sod/Tazobactam (Sod 3.375 gm/ Sodium Chloride) 50 mls @ 100 mls/ hr IV Q6H [facility] Last Admin: 09/04/16 04:30 Dose: 100 mls/hr Lisinopril (Prinivil) 10 mg PO DAILY [facility] Last Admin: 09/04/16 08:53 Dose: 10 mg Sodium Chloride (Saline Flush) 10 ml FLUSH ASDIRECTED PRN PRN Reason: Keep Vein Open Sodium Chloride (Saline Flush) 2.5 ml FLUSH ASDIRECTED PRN PRN Reason: Keep Vein Open Sodium Chloride (Saline Flush) 10 ml FLUSH ASDIRECTED PRN PRN Reason: Keep Vein Open Sodium Chloride (Saline Flush) 2.5 ml FLUSH ASDIRECTED PRN PRN Reason: Keep Vein Open Vancomycin HCl (Pharmacy To Dose - Vancomycin) 1 dose .XX ASDIRECTED [facility] Discontinued Medications Diphtheria/Tetanus/Acell Pertussis (Adacel) 0.5 ml IM .ONCE ONE Stop: 09/04/16 12:01 Last Admin: 09/04/16 12:04 Dose: 0.5 ml Gadobenate Dimeglumine (Multihance) 20 ml IVPUSH ONETIME STA Stop: 09/03/16 14:18 Last Admin: 09/03/16 14:18 Dose: 20 ml Vancomycin HCl 1 gm/ Sodium (Chloride) 250 mls @ 250 mls/hr IV ONETIME ONE Stop: 08/31/16 04:46 Last Admin: 08/31/16 04:02 Dose: 250 mls/hr Vancomycin HCl 500 mg/ Sodium (Chloride) 100 mls @ 100 mls/hr IV NOW ONE Stop: 08/31/16 06:59 Last Admin: 08/31/16 06:30 Dose: 100 mls/hr Iopamidol (Isovue-370 (76%)) 100 ml IVPUSH ONETIME STA Stop: 08/31/16 05:22 Last Admin: 08/31/16 05:22 Dose: 100 ml Lidocaine (Xylocaine-Mpf 2%) 5 ml INJECT ONETIME ONE Stop: 09/01/16 09:01 Last Admin: 09/01/16 09:45 Dose: 5 ml Lidocaine (Xylocaine-Mpf 2%) 5 ml INJECT ONETIME ONE Stop: 09/04/16 10:38 Last Admin: 09/04/16 11:36 Dose: 5 ml - Exam Physical Findings Comment:: cellulitis greatly improved from marking; no hand swelling - Problem List Review Problem List Initiated/Reviewed/Updated: Yes - My Orders Last 24 Hours: Active Orders 24 hr Category Date Time Status Ready for Discharge [RC] PER UNIT ROUTINE Care 09/04/16 11:46 Active Vaccines to be Administered [RC] PER UNIT ROUTINE Care 09/04/16 11:34 Active VANCOMYCIN TROUGH [CHEM] Routine Lab 09/05/16 11:00 Ordered Medication Orders Hydromorphone HCl (Dilaudid) 2 mg IVPUSH Q2H PRN PRN Reason: Pain Last Admin: 09/04/16 02:44 Dose: 2 mg Admin: 09/04/16 00:37 Dose: 2 mg Admin: 09/03/16 19:21 Dose: 2 mg Admin: 09/03/16 10:38 Dose: 2 mg Admin: 09/03/16 04:35 Dose: 2 mg Admin: 09/03/16 01:47 Dose: 2 mg Admin: 09/02/16 22:58 Dose: 2 mg Admin: 09/02/16 20:52 Dose: 2 mg Admin: 09/02/16 12:43 Dose: 2 mg Admin: 09/02/16 07:02 Dose: 2 mg Admin: 09/01/16 23:39 Dose: 2 mg Admin: 09/01/16 18:56 Dose: 2 mg Admin: 09/01/16 16:09 Dose: 2 mg Admin: 09/01/16 11:24 Dose: 2 mg Admin: 08/31/16 20:52 Dose: 2 mg Admin: 08/31/16 06:38 Dose: 2 mg Vancomycin HCl 1.5 gm/ Sodium (Chloride) 500 mls @ 333.333 mls/hr IV Q8H [facility] Last Admin: 09/04/16 05:10 Dose: 333.333 mls/hr Infusion: 09/03/16 23:19 Dose: 333.333 mls/hr Admin: 09/03/16 21:48 Dose: 333.333 mls/hr Infusion: 09/03/16 16:25 Dose: 333.333 mls/hr Admin: 09/03/16 14:54 Dose: 333.333 mls/hr Infusion: 09/03/16 06:09 Dose: 333.333 mls/hr Admin: 09/03/16 04:38 Dose: 333.333 mls/hr Infusion: 09/02/16 22:01 Dose: 333.333 mls/hr Admin: 09/02/16 20:30 Dose: 333.333 mls/hr Infusion: 09/02/16 13:54 Dose: 333.333 mls/hr Admin: 09/02/16 12:23 Dose: 333.333 mls/hr Infusion: 09/02/16 06:22 Dose: 333.333 mls/hr Admin: 09/02/16 04:51 Dose: 333.333 mls/hr Infusion: 09/01/16 22:03 Dose: 333.333 mls/hr Admin: 09/01/16 20:32 Dose: 333.333 mls/hr Infusion: 09/01/16 15:01 Dose: 333.333 mls/hr Admin: 09/01/16 13:30 Dose: 333.333 mls/hr Infusion: 09/01/16 06:53 Dose: 333.333 mls/hr Admin: 09/01/16 05:22 Dose: 333.333 mls/hr Infusion: 08/31/16 22:31 Dose: 333.333 mls/hr Admin: 08/31/16 21:00 Dose: 333.333 mls/hr Infusion: 08/31/16 13:20 Dose: 333.333 mls/hr Admin: 08/31/16 11:49 Dose: 333.333 mls/hr Piperacillin Sod/Tazobactam (Sod 3.375 gm/ Sodium Chloride) 50 mls @ 100 mls/ hr IV Q6H [facility] Admin: 09/04/16 04:30 Dose: 100 mls/hr Infusion: 09/03/16 23:57 Dose: 100 mls/hr Admin: 09/03/16 23:27 Dose: 100 mls/hr Infusion: 09/03/16 17:22 Dose: 100 mls/hr Admin: 09/03/16 16:52 Dose: 100 mls/hr Infusion: 09/03/16 11:00 Dose: 100 mls/hr Admin: 09/03/16 10:30 Dose: 100 mls/hr Infusion: 09/03/16 06:56 Dose: 100 mls/hr Admin: 09/03/16 06:26 Dose: 100 mls/hr Infusion: 09/02/16 22:47 Dose: 100 mls/hr Admin: 09/02/16 22:17 Dose: 100 mls/hr Infusion: 09/02/16 16:45 Dose: 100 mls/hr Admin: 09/02/16 16:15 Dose: 100 mls/hr Infusion: 09/02/16 10:23 Dose: 100 mls/hr Admin: 09/02/16 09:53 Dose: 100 mls/hr Infusion: 09/02/16 04:30 Dose: 100 mls/hr Admin: 09/02/16 04:00 Dose: 100 mls/hr Infusion: 09/01/16 23:20 Dose: 100 mls/hr Admin: 09/01/16 22:50 Dose: 100 mls/hr Infusion: 09/01/16 16:27 Dose: 100 mls/hr Admin: 09/01/16 15:57 Dose: 100 mls/hr Infusion: 09/01/16 11:42 Dose: 100 mls/hr Admin: 09/01/16 11:12 Dose: 100 mls/hr Infusion: 09/01/16 05:18 Dose: 100 mls/hr Admin: 09/01/16 04:48 Dose: 100 mls/hr Infusion: 08/31/16 23:03 Dose: 100 mls/hr Admin: 08/31/16 22:33 Dose: 100 mls/hr Infusion: 08/31/16 16:11 Dose: 100 mls/hr Admin: 08/31/16 15:41 Dose: 100 mls/hr Infusion: 08/31/16 11:36 Dose: 100 mls/hr Admin: 08/31/16 11:06 Dose: 100 mls/hr Lisinopril (Prinivil) 10 mg PO DAILY [facility] Last Admin: 09/04/16 08:53 Dose: 10 mg Admin: 09/03/16 08:09 Dose: 10 mg Admin: 09/02/16 09:23 Dose: 10 mg Admin: 09/01/16 08:34 Dose: 10 mg Admin: 08/31/16 08:38 Dose: 10 mg Sodium Chloride (Saline Flush) 10 ml FLUSH ASDIRECTED PRN PRN Reason: Keep Vein Open Sodium Chloride (Saline Flush) 2.5 ml FLUSH ASDIRECTED PRN PRN Reason: Keep Vein Open Sodium Chloride (Saline Flush) 10 ml FLUSH ASDIRECTED PRN PRN Reason: Keep Vein Open Sodium Chloride (Saline Flush) 2.5 ml FLUSH ASDIRECTED PRN PRN Reason: Keep Vein Open Vancomycin HCl (Pharmacy To Dose - Vancomycin) 1 dose .XX ASDIRECTED [facility] - Assessment Assessment (Free Text/Narrative):: mri, no abscess; pt responded well to iv abx; would continue supportive care; R forearm elevation X 2 wks, with shoulder sling; fu w me prn; thanks for the consult; - Plan Plan (Free Text/Narrative):: mri, no abscess; pt responded well to iv abx; would continue supportive care; R forearm elevation X 2 wks, with shoulder sling; fu w me prn; thanks for the consult;
== END 2016-09-04 12:34 | disposition home or self-care (01) | DRG 580 ==
LOC: MW.ED 02:44 → EDSEX 02:44 → MW.MS 04:27
PROVIDERS: ADMIT Family Medicine; ATTEND Family Medicine
PROC: 0J9G0ZZ Drainage of Right Lower Arm Subcutaneous Tissue and Fascia, Open Approach (ICD-10-PCS; principal; 2016-09-01)
DX: L03.113 Cellulitis of right upper limb (principal); Z68.41 Body mass index [BMI] 40.0-44.9, adult; L02.413 Cutaneous abscess of right upper limb; I10 Essential (primary) hypertension; E66.01 Morbid (severe) obesity due to excess calories; Z79.899 Other long term (current) drug therapy; Z86.14 Personal history of Methicillin resistant Staphylococcus aureus infection
CPT/HCPCS: 36415; 73201-26-RT; 73201-RT; 73223-26-RT; 73223-RT; 80048; 80053; 80202; 83036; 83605; 85025; 87040; 90715; 96365; 99284-25; 99285; A9270-GY; A9577; J1170; J2543; J3370; J7030; J7040; J7050; Q9967